=== PATIENT | female | born 1950 | race Caucasian/White ===

== ENCOUNTER 2024-07-03 14:52 | Emergency (ER) | payer BC ==
--- OUTSIDE RECORDS SUMMARY | 2024-07-03 14:55 | XMS REPORT | Continuity of Care Document ---
Author Name Unknown Address [address] [facility] [address] [place] [address] [facility] Address [address] [facility] 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 Name Role Phone Jeffrey Turk Attending Clinician Unavailable Latisha Caba Attending Clinician Unavailab le Latisha Caba Admitting Clinician Unavailab le Payers Payer Name Policy Type Policy Number Effective Date Expirati on Date Source [place] [address] [id number] 2020 00:00:00 [facility] [id number] 2012 00:00:00 Problems Condition Name Condition Details Condition Category Status Onset Date Resolution Date Last Treatment Date Treating Clinician Comments Source [id number] History of left breast cancer Problem Active [facility] Abnormal mammogram Abnormal mammogram Problem [facility] [id number] Nonallergi c rhinitis Problem [facility] Allergic rhinitis Non-season al allergic rhinitis, unspecifie d trigger Problem [facility] [id number] Mixed hyperlipid emia Problem Active [facility] [id number] Primary insomnia Problem [facility] [id number] Gastroesop hageal reflux disease, unspecifie d whether esophagiti s present Problem [facility] Allergies, Adverse Reactions, Alerts Allergy Name Allergy Type Status Severity Reaction(s) Onset Date Inactive Date Treating Clinician Comments Source Sulfa (Sulfona mide Antibiot ics) DA Active [place] 2015-06 00:00: 00 [facility] Sulfa (Sulfona mide Antibiot ics) DA Active [place] LIPS TURN BLUE, DIZZINESS 2015-06 00:00: 00 [facility] SULFA (SULFONA MIDE ANTIBIOT ICS) Drug Class Active Unknown-Cmnt 2015-06 00:00: 00 [facility] codeine codeine Active Unknown [facility] pantopra zole pantopra zole Active sore throat [facility] Substanc e with sulfonam radha structur e and antibact erial mechanis m of action (substan ce) Substanc e with sulfonam radha structur e and antibact erial mechanis m of action (substan ce) Active Unknown [facility] Social History Social Habit Start Date Stop Date Quantity Comments Source History of Tobacco Use [facility] Sex Assigned At [facility] Smoking Status Start Date Stop Date Source Never Smoker [facility] Medications Ordered Medication Name Filled Medication Name Start Date Stop Date Current Medication? Ordering Clinician Indication Dosage Frequency Signature (SIG) Comments Components Source Kenalog (Triamcinol one) Kenalog (Triamcinol one) 2023-06 00:00: 00 No 40mg [facility] traZODone HCl 50 MG traZODone HCl 50 MG No 1{table t_at_be dtime_a s_neede d} QD traZODone HCl 50 MG Immunizations Ordered Immunization Name Filled Immunization Name Date Status Comments Source Boostrix (Tdap) Boostrix (Tdap) 2021-08-13 10:33:00 Completed [facility] Boostrix (Tdap) Boostrix (Tdap) 2021-08-13 10:33:00 Completed [facility] FLUZONE HIGH DOSE OVER 65 FLUZONE HIGH DOSE OVER 65 2021-08-13 10:13:00 Completed [facility] FLUZONE HIGH DOSE OVER 65 FLUZONE HIGH DOSE OVER 65 2021-08-13 10:13:00 Completed [facility] FLUZONE HIGH DOSE OVER 65 FLUZONE HIGH DOSE OVER 65 Unknown Completed [facility] Prevnar 20 (PCV20) Prevnar 20 (PCV20) Unknown Completed [facility] FluAD Quad SD FluAD Quad SD Unknown Completed [facility] Boostrix (Tdap) Boostrix (Tdap) Unknown Completed [facility] FLUZONE HIGH DOSE OVER 65 FLUZONE HIGH DOSE OVER 65 Unknown Completed [facility] Prevnar 20 (PCV20) Prevnar 20 (PCV20) Unknown Completed [facility] FluAD Quad SD FluAD Quad SD Unknown Completed [facility] Boostrix (Tdap) Boostrix (Tdap) Unknown Completed [facility] FLUZONE HIGH DOSE OVER 65 FLUZONE HIGH DOSE OVER 65 Unknown Completed [facility] Prevnar 20 (PCV20) Prevnar 20 (PCV20) Unknown Completed [facility] FluAD Quad SD FluAD Quad SD Unknown Completed [facility] Boostrix (Tdap) Boostrix (Tdap) Unknown Completed [facility] FLUZONE HIGH DOSE OVER 65 FLUZONE HIGH DOSE OVER 65 Unknown Completed [facility] Prevnar 20 (PCV20) Prevnar 20 (PCV20) Unknown Completed [facility] Fluad (aIIV4) - SDS - 0.5mL Fluad (aIIV4) - SDS - 0.5mL Unknown Completed [facility] Boostrix (Tdap) Boostrix (Tdap) Unknown Completed [facility] FLUZONE HIGH DOSE OVER 65 FLUZONE HIGH DOSE OVER 65 Unknown Completed [facility] Prevnar 20 (PCV20) Prevnar 20 (PCV20) Unknown Completed [facility] Fluad (aIIV4) - SDS - 0.5mL Fluad (aIIV4) - SDS - 0.5mL Unknown Completed [facility] Boostrix (Tdap) Boostrix (Tdap) Unknown Completed [facility] FLUZONE HIGH DOSE OVER 65 FLUZONE HIGH DOSE OVER 65 Unknown Completed [facility] Prevnar 20 (PCV20) Prevnar 20 (PCV20) Unknown Completed [facility] Fluad (aIIV4) - SDS - 0.5mL Fluad (aIIV4) - SDS - 0.5mL Unknown Completed [facility] Boostrix (Tdap) Boostrix (Tdap) Unknown Completed [facility] FLUZONE HIGH DOSE OVER 65 FLUZONE HIGH DOSE OVER 65 Unknown Completed [facility] Prevnar 20 (PCV20) Prevnar 20 (PCV20) Unknown Completed [facility] Fluad (aIIV4) - SDS - 0.5mL Fluad (aIIV4) - SDS - 0.5mL Unknown Completed [facility] Boostrix (Tdap) Boostrix (Tdap) Unknown Completed [facility] FLUZONE HIGH DOSE OVER 65 FLUZONE HIGH DOSE OVER 65 Unknown Completed [facility] Prevnar 20 (PCV20) Prevnar 20 (PCV20) Unknown Completed [facility] Fluad (aIIV4) - SDS - 0.5mL Fluad (aIIV4) - SDS - 0.5mL Unknown Completed [facility] Boostrix (Tdap) Boostrix (Tdap) Unknown Completed [facility] FLUZONE HIGH DOSE OVER 65 FLUZONE HIGH DOSE OVER 65 Unknown Completed [facility] Prevnar 20 (PCV20) Prevnar 20 (PCV20) Unknown Completed [facility] Fluad (aIIV4) - SDS - 0.5mL Fluad (aIIV4) - SDS - 0.5mL Unknown Completed [facility] Boostrix (Tdap) Boostrix (Tdap) Unknown Completed [facility] FLUZONE HIGH DOSE OVER 65 FLUZONE HIGH DOSE OVER 65 Unknown Completed [facility] Prevnar 20 (PCV20) Prevnar 20 (PCV20) Unknown Completed [facility] Fluad (aIIV4) - SDS - 0.5mL Fluad (aIIV4) - SDS - 0.5mL Unknown Completed [facility] Boostrix (Tdap) Boostrix (Tdap) Unknown Completed [facility] FLUZONE HIGH DOSE OVER 65 FLUZONE HIGH DOSE OVER 65 Unknown Completed [facility] Prevnar 20 (PCV20) Prevnar 20 (PCV20) Unknown Completed [facility] Fluad (aIIV4) - SDS - 0.5mL Fluad (aIIV4) - SDS - 0.5mL Unknown Completed [facility] Boostrix (Tdap) Boostrix (Tdap) Unknown Completed [facility] FLUZONE HIGH DOSE OVER 65 FLUZONE HIGH DOSE OVER 65 Unknown Completed [facility] Prevnar 20 (PCV20) Prevnar 20 (PCV20) Unknown Completed [facility] Fluad (aIIV4) - SDS - 0.5mL Fluad (aIIV4) - SDS - 0.5mL Unknown Completed [facility] Boostrix (Tdap) Boostrix (Tdap) Unknown Completed [facility] FLUZONE HIGH DOSE OVER 65 FLUZONE HIGH DOSE OVER 65 Unknown Completed [facility] Prevnar 20 (PCV20) Prevnar 20 (PCV20) Unknown Completed [facility] FluAD Quad SD FluAD Quad SD Unknown Completed [facility] Boostrix (Tdap) Boostrix (Tdap) Unknown Completed [facility] FLUZONE HIGH DOSE OVER 65 FLUZONE HIGH DOSE OVER 65 Unknown Completed [facility] Prevnar 20 (PCV20) Prevnar 20 (PCV20) Unknown Completed [facility] FluAD Quad SD FluAD Quad SD Unknown Completed [facility] Boostrix (Tdap) Boostrix (Tdap) Unknown Completed [facility] Vital Signs Vital Name Observation Time Observation Value Comments S robce height 2024-05-02 11:15:00 65 [in_i] Commo n [facility] weight 2024-05-02 11:15:00 164.2 [lb_av] Co [facility] temperature 2024-05-02 11:15:00 97.2 [degF] Com [facility] bmi 2024-05-02 11:15:00 27.32 kg/m2 Comm on [facility] oximetry 2024-05-02 11:15:00 98 % Commo n [facility] blood pressure systolic 2024-05-02 11:15:00 130 mm[Hg] Common [facility] blood pressure diastolic 2024-05-02 11:15:00 80 mm[Hg] Common [facility] height 2023-08-07 10:30:00 65 [in_i] Commo n [facility] weight 2023-08-07 10:30:00 153.8 [lb_av] Co [facility] temperature 2023-08-07 10:30:00 97.3 [degF] Com [facility] bmi 2023-08-07 10:30:00 25.59 kg/m2 Comm on [facility] oximetry 2023-08-07 10:30:00 97 % Commo n [facility] blood pressure systolic 2023-08-07 10:30:00 110 mm[Hg] Common [facility] blood pressure diastolic 2023-08-07 10:30:00 60 mm[Hg] [facility] height 2023-07-31 11:20:00 65 [in_i] Commo n [facility] weight 2023-07-31 11:20:00 159 [lb_av] Comm on [facility] bmi 2023-07-31 11:20:00 26.46 kg/m2 Comm on [facility] height 2023-03-24 09:00:00 65 [in_i] Commo n [facility] weight 2023-03-24 09:00:00 159.2 [lb_av] Co [facility] temperature 2023-03-24 09:00:00 97.2 [degF] Com [facility] bmi 2023-03-24 09:00:00 26.49 kg/m2 Comm on [facility] oximetry 2023-03-24 09:00:00 98 % Commo n [facility] respiratory rate 2023-03-24 09:00:00 17 /min Common [facility] blood pressure systolic 2023-03-24 09:00:00 132 mm[Hg] [facility] blood pressure diastolic 2023-03-24 09:00:00 72 mm[Hg] Common [facility] height 2023-01-20 10:50:00 65 [in_i] Commo n [facility] weight 2023-01-20 10:50:00 164.2 [lb_av] Co on [facility] temperature 2023-01-20 10:50:00 97.3 [degF] Com [facility] bmi 2023-01-20 10:50:00 27.32 kg/m2 Comm on [facility] oximetry 2023-01-20 10:50:00 98 % Commo n [facility] respiratory rate 2023-01-20 10:50:00 16 /min Common [facility] blood pressure systolic 2023-01-20 10:50:00 129 mm[Hg] [facility] blood pressure diastolic 2023-01-20 10:50:00 72 mm[Hg] [facility] height 2022-08-25 13:00:00 65 [in_i] Commo n [facility] weight 2022-08-25 13:00:00 166.2 [lb_av] Co on [facility] temperature 2022-08-25 13:00:00 96.8 [degF] Com [facility] bmi 2022-08-25 13:00:00 27.65 kg/m2 Comm on [facility] oximetry 2022-08-25 13:00:00 98 % Commo n [facility] respiratory rate 2022-08-25 13:00:00 18 /min [facility] blood pressure systolic 2022-08-25 13:00:00 121 mm[Hg] [facility] blood pressure diastolic 2022-08-25 13:00:00 62 mm[Hg] Common [facility] height 2022-08-07 13:00:00 65 [in_i] Commo n [facility] weight 2022-08-07 13:00:00 169.1 [lb_av] Co mmon [facility] temperature 2022-08-07 13:00:00 97.2 [degF] Com [facility] bmi 2022-08-07 13:00:00 28.14 kg/m2 Comm on [facility] oximetry 2022-08-07 13:00:00 98 % Commo n [facility] respiratory rate 2022-08-07 13:00:00 18 /min [facility] blood pressure systolic 2022-08-07 13:00:00 119 mm[Hg] Common [facility] blood pressure diastolic 2022-08-07 13:00:00 64 mm[Hg] [facility] height 2021-09-02 13:50:00 65 [in_i] Commo n [facility] weight 2021-09-02 13:50:00 159.9 [lb_av] Co mmon [facility] temperature 2021-09-02 13:50:00 97.5 [degF] Com mon [facility] bmi 2021-09-02 13:50:00 26.61 kg/m2 Comm on [facility] oximetry 2021-09-02 13:50:00 97 % Commo n [facility] respiratory rate 2021-09-02 13:50:00 17 /min [facility] blood pressure systolic 2021-09-02 13:50:00 130 mm[Hg] Common [facility] blood pressure diastolic 2021-09-02 13:50:00 73 mm[Hg] Common [facility] height 2021-08-13 09:00:00 65 [in_i] Commo n [facility] weight 2021-08-13 09:00:00 170 [lb_av] Comm on [facility] temperature 2021-08-13 09:00:00 97.2 [degF] Com mon [facility] bmi 2021-08-13 09:00:00 28.29 kg/m2 Comm on [facility] oximetry 2021-08-13 09:00:00 97 % Commo n [facility] respiratory rate 2021-08-13 09:00:00 18 /min Common [facility] blood pressure systolic 2021-08-13 09:00:00 132 mm[Hg] Common [facility] blood pressure diastolic 2021-08-13 09:00:00 70 mm[Hg] Common [facility] Encounters Start Date/Time End Date/Time Encounter Type Admission Type Attending [facility] Facility Care Department Encounter ID Source 2024-04-28 13:59:00 Outpatient Turk[facility] [id number] [facility] 2023-09-01 10:38:01 Outpatient Turk, [facility] [id number] [facility] 2022-08-22 09:29:01 Outpatient Turk, [facility] [id number] [facility] 2022-08-05 10:12:01 Outpatient Turk, [facility] [id number] [facility] 2021-12-10 13:59:04 [facility] [id number] [facility] 2021-11-29 08:42:01 Outpatient Turk, Jeffrey [facility] [id number] [facility] 2021-11-04 10:42:31 Outpatient Turk, Jeffrey [facility] [id number] [facility] 2021-09-02 13:30:02 Outpatient Turk, Jeffrey [facility] [id number] [facility] 2021-08-13 08:51:05 Outpatient Turk, Jeffrey [facility] STL[facility] [id number] [facility] 2024-05-05 00:00:00 2024-05-05 00:00:00 (TEL) ST[facility] STL[facility] [id number] [facility] 2024-05-02 00:00:00 2024-05-02 00:00:00 OFFICE VISIT ESTAB PT LEVEL 4 [facility]C STL[facility]C [id number] [facility] 2024-05-02 00:00:00 2024-05-02 00:00:00 (TEL) STLMLC STL[facility]C [id number] [facility] 2024-03-11 00:00:00 2024-03-11 00:00:00 (TEL) STLMLC ST[facility] [id number] [facility] 2023-10-23 00:00:00 2023-10-23 00:00:00 (TEL) STLMLC STL[facility]C [id number] [facility] 2023-10-14 00:00:00 2023-10-14 00:00:00 (TEL) STLMLC STLMLC [id number] [facility] 2023-08-07 00:00:00 2023-08-07 00:00:00 PREV VISIT EST AGE 65 & OVER STLMLC STLMLC [id number] [facility] 2023-07-31 00:00:00 2023-07-31 00:00:00 OFFICE VISIT ESTAB PT LEVEL 3 [facility]C STL[facility]C [id number] [facility] 2023-07-31 00:00:00 2023-07-31 00:00:00 (TEL) STLMLC STL[facility]C [id number] [facility] 2023-03-30 00:00:00 2023-03-30 00:00:00 (TEL) STLMLC STLMLC [id number] [facility] 2023-03-24 00:00:00 2023-03-24 00:00:00 OFFICE VISIT ESTAB PT LEVEL 4 [facility]C STL[facility]C [id number] [facility] 2023-03-23 00:00:00 2023-03-23 00:00:00 (TEL) STLMLC STL[facility]C [id number] [facility] 2023-01-20 00:00:00 2023-01-20 00:00:00 OFFICE VISIT ESTAB PT LEVEL 3 [facility]C STL[facility]C [id number] [facility] 2022-10-06 00:00:00 2022-10-06 00:00:00 (TEL) STLMLC STLMLC [id number] [facility] 2022-10-06 00:00:00 2022-10-06 00:00:00 (TEL) STLMLC STLMLC [id number] [facility] 2022-08-25 00:00:00 2022-08-25 00:00:00 OFFICE VISIT ESTAB PT LEVEL 4 [facility]C STL[facility]C [id number] [facility] 2022-08-07 00:00:00 2022-08-07 00:00:00 PREV VISIT EST AGE 65 & OVER STLMLC STLMLC [id number] [facility] 2021-09-03 00:00:00 2021-09-03 00:00:00 (TEL) STLMLC STLMLC [id number] [facility] 2021-09-02 00:00:00 2021-09-02 00:00:00 OFFICE VISIT EST PT LEVEL 3 [facility] STL[facility]C [id number] [facility] 2021-08-15 00:00:00 2021-08-15 00:00:00 (TEL) STLMLC STL[facility]C [id number] [facility] 2021-08-13 00:00:00 2021-08-13 00:00:00 PREV VISIT NEW AGE 65 & OVER STLMLC STLMLC [id number] [facility] 2021-04-11 11:30:00 2021-04-11 11:30:00 Outpatient [facility] [id number] [facility] 2019-12-08 12:00:00 2019-12-08 12:00:00 Outpatient Latisha Cleveland [facility] [id number] [facility] Results Test Description Test Time Test Comments Results Result Co mments Source HEMOGLOBIN [id number] 00:00:00* Test Item Value Reference Range Interpretation Comme nts HEMOGLOBIN A1c (test code = 4548-4) 5.6 % See_Comment [Automated [employer]] The system which generated this result transmitted reference range: 4.2-5.6 %. The reference range was not used to interpret this result as normal/abnormal. DEXA, BONE DENSITY AXIAL SKELEDEXA, BONE DENSITY AXIAL GLMZE5G SCR ALISON BILAT W/CAD3D SCR ALISON BILAT W/CADPOC, COVID 19 Antigen + Flu by SofiaPOC, COVID 19 Antigen + Flu by Ora
[2024-07-03] MEDS ORDERED: MORPHINE 2 MG/ML SYR ONE ×2 (15:40→19:05)
[2024-07-03] MEDS ORDERED: FAMOTIDINE 20 MG/2 ML VIAL IV ONE (15:40)
[2024-07-03] MEDS ORDERED: ONDANSETRON 4 MG/2 ML VIAL ONE (15:40)
[2024-07-03] MEDS ORDERED: NA CHLORIDE 0.9% 500 ML ONE (15:41)
[2024-07-03 16:07] LABS: Absolute Basophils 0.1 K/uL (0-0.5); Absolute Eosinophils 0.2 K/uL (0-0.5); Absolute Lymphocytes (CBC) 1.6 K/uL (0.7-4.9); Absolute Monocytes 0.7 K/uL (0.1-1.3); Absolute Neutrophil 8.1 K/uL (1.8-8.0); Basophils % 0.9 % (0-1.3); Eosinophils % 1.6 % (0-4.4); Hemoglobin 13.6 g/dL (12.0-15.0); Lymphocytes % 14.8 % (15.3-44.8); MCH 32.3 pg (27.0-35.0); MCV 94.9 fL (80-100); MPV 8.5 fL (7.6-11.3); Monocytes % 6.5 % (3.3-12.3); Neutrophils % 76.2 % (41.7-73.7); Nucleated Red Blood Cells % 0.1 % (0-0); Platelets 271 thou/uL (152-406); RBC Red Blood Cell Count 4.22 M/uL (3.86-4.86); Red Cell Distribution Width 13.3 % (12.1-15.2)
[2024-07-03 16:21] LABS: ALT/SGPT 29 U/L (13-56); AST/SGOT 47 U/L (15-37); Albumin 3.6 g/dL (3.4-5.0); Alkaline Phosphatase 81 U/L (45-117); Anion Gap 12.3 mEq/L (5.0-15.0); BUN Blood Urea Nitrogen 15 mg/dL (7-18); Bicarbonate 23 mEq/L (21-32); Bilirubin Direct 0.3 mg/dL (0-0.2); Bilirubin Indirect, Calculated 0.5 mg/dL (0.2-0.8); Bilirubin Total 0.8 mg/dL (0.2-1.0); Globulin 3.6 g/dL (2.3-3.5); Glomerular Filtration Rate 81 ml/min (=/>90); Glucose Level 104 mg/dL (74-106); Lipase 53 U/L (13-75); Magnesium 2.2 mg/dL (1.6-2.4); Potassium 3.3 mEq/L (3.5-5.1); Protein, Total 7.2 g/dL (6.4-8.2); Sodium Level 140 mEq/L (136-145)
--- NOTE | 2024-07-03 16:22 | RAD REPORT ---
EXAMINATION: ONE VIEW CHEST XR CLINICAL INDICATION: Female, 73 years old.,epigastric pain TECHNIQUE: Frontal chest projection is submitted. Examination is limited by patient positioning and t echnique. COMPARISON: No prior exam. FINDINGS: The lungs are somewhat hypoinflated but clear. No pneumothorax or sizable effusion. The heart is nor mal in size. Mediastinal contours are unremarkable. IMPRESSION: No acute intrathoracic abnormalities.
[2024-07-03 16:25] LABS: Troponin High Sensitivity < 3.0 pg/mL (<58.9)
[2024-07-03 16:30] LABS: PT Prothrombin Time 11.9 SECONDS (9.4-12.5); Protime INR 1.06
--- NOTE | 2024-07-03 18:44 | RAD REPORT ---
EXAMINATION: CT Abdomen Pelvis W Contrast CLINICAL INDICATION: Female, 73 years old. EPIGASTRIC PAIN TECHNIQUE: CT abdomen and pelvis was performed, after the administration of IV contrast, as per [facility] protocol. Axial, sagittal and coronal reconstructions were obtained. One or more of the following dose reduction techniques were used: Automated exposure control, adjustment of the mA and k V according to patient size, and iterative reconstruction. Unless otherwise specified, incidental findings do not require dedicated imaging follow-up. COMPARISON: No prior exam. FINDINGS: LOWER CHEST: The visualized lung bases are clear apart from small platelike atelectasis in the depend ent left lower lobe. LIVER: Normal in size and contour. No focal lesion. BILIARY SYSTEM: Status post cholecystectomy. SPLEEN: Normal size. No focal lesion. PANCREAS: No mass, ductal dilation, or charlene-pancreatic fluid. ADRENALS: Nodular left adrenal thickening, up to 2.3 cm, not well characterized.. No right adrenal arnold spicious findings. KIDNEYS: Normal size and contour. No hydronephrosis. URINARY BLADDER: Unremarkable. GASTROINTESTINAL TRACT: No evidence of free air, significant intra-abdominal free fluid, bowel obstru ction or abscess. 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 APPENDIX: Normal appendix. LYMPH NODES: No lymphadenopathy. MUSCULOSKELETAL: Lucent left lateral eighth rib 1.4 cm lesion with endosteal scalloping, nonspecific, may represent a small bone cyst. No acute osseous abnormality. ADDITIONAL FINDINGS: None. IMPRESSION: No acute or concerning abnormalities seen in the abdomen or pelvis. Incidental findings as above including homogeneous nodular left adrenal thickening, up to 2.3 cm. Adrenal Incidental Indeterminate, CT W/O, > 2 - < 4 cm, > 10 HU, Homogeneous: Noncontrast CT, Incidental Indeterminate Adrenal Mass > 2 - < 4 cm, > 10 HU, Homogeneous: Probable be nign adenoma. Recommend adrenal washout CT or chemical shift MRI. These guidelines do not apply to patients younger than 18 years, patients with cancer, and patients w ith any clinical suspicion of a functioning adrenal lesion. Reference: JACR 2017 Jan; 14(8):1038-44, JCAT 2016 Aug-Sep; 40(2):194-200
--- NOTE | 2024-07-03 19:07 | ER ---
Nurse's Notes [facility] Name: Linette Robles Age: 73 yrs Sex: Female : 1950 Arrival Date: 07/03/2024 Time: 14:52 Bed 13 Private MD: Diagnosis: Epigastric pain Presentation: 07/03 15:05 Chief complaint: Patient states: UPPER MIDDLE ABD PAIN STATES FEELS WORSE THAN GALL db BLADDER PAIN PRIOR TO SURGERY. REPORTS PAIN STARTED LAST NIGHT. DENES N/V. Coronavirus screen: Client denies travel out of the [place] in the last 14 days. At this time, the client does not indicate any symptoms associated with coronavirus-19. Ebola Screen: Patient negative for fever greater than or equal to 101.5 degrees Fahrenheit, and additional compatible Ebola Virus Disease symptoms Patient denies exposure to infectious person. Patient denies travel to an Ebola-affected area in the 21 days before illness onset. No symptoms or risks identified at this time. Initial Sepsis Screen: Does the patient meet any 2 criteria? No. Patient's initial sepsis screen is negative. Does the patient have a suspected source of infection? No. Patient's initial sepsis screen is negative. Risk Assessment: Do you want to hurt yourself or someone else? Patient reports no desire to harm self or others. Onset of symptoms was July 02, 2024. 15:05 Method Of Arrival: Ambulatory db 15:05 Acuity: ENIO 3 db Triage Assessment: 15:08 General: Appears in no apparent distress. uncomfortable, Behavior is cooperative, db anxious. Pain: Complains of pain in epigastric area and right upper quadrant. Neuro: Level of Consciousness is awake, alert, obeys commands, Oriented to person, place, time, situation. Respiratory: Airway is patent Respiratory effort is even, unlabored, Respiratory pattern is regular, symmetrical. GI: Abdomen is flat, non-distended, Reports upper abdominal pain. Historical: - Allergies: 15:20 Codeine; db 15:20 SULFUR, ELEMENTAL; db 15:20 Sulfa (Sulfonamide Antibiotics); db - PMHx: 15:20 CANCER BREAST; LEFT; db - PSHx: 15:20 LEFT BREAST; db - Immunization history:: Adult Immunizations unknown. - Infectious Disease History:: Denies. - Social history:: Smoking status: Patient denies any tobacco usage or history of. Screenin:10 [facility] ED Fall Risk Assessment (Adult) History of falling in the last 3 months, rs5 including since admission No falls in past 3 months (0 pts) Confusion or Disorientation No (0 pts) Intoxicated or Sedated No (0 pts) Impaired Gait No (0 pts) Mobility Assist Device Used No (0 pt) Altered Elimination No (0 pt) Score/Fall Risk Level 0 - 2 = Low Risk Oriented to surroundings, Maintained a safe environment. Abuse screen: Denies threats or abuse. Nutritional screening: No deficits noted. Tuberculosis screening: No symptoms or risk factors identified. Assessment: 15:07 General: Appears in no apparent distress. uncomfortable, Behavior is calm, cooperative. rs5 Pain: Complains of pain in abdomen Pain currently is 8 out of 10 on a pain scale. Quality of pain is described as aching, Is continuous. Neuro: Level of Consciousness is awake, alert, obeys commands, Oriented to person, place, time, situation. Cardiovascular: Patient's skin is warm and dry. Respiratory: Airway is patent Respiratory effort is even, unlabored, Respiratory pattern is regular, symmetrical. GI: Abdomen is round non-distended, Bowel sounds present X 4 quads. Abd is soft and non tender. : No signs and/or symptoms were reported regarding the genitourinary system. EENT: No signs and/or symptoms were reported regarding the EENT system. Derm: Skin is intact, Skin is pink, warm \T\ dry. Musculoskeletal: Range of motion: intact in all extremities. 16:30 Reassessment: Patient and/or family updated on plan of care and expected duration. Pain rs5 level reassessed. Patient is alert, oriented x 3, equal unlabored respirations, skin warm/dry/pink. 19:20 General: Appears in no apparent distress. comfortable, Behavior is calm, cooperative. rg5 Pain: Denies pain. Neuro: Level of Consciousness is awake, alert, Oriented to person, place. Cardiovascular: Patient's skin is warm and dry. Respiratory: Airway is patent Trachea midline Respiratory effort is even, unlabored, Respiratory pattern is regular, symmetrical. Vital Signs: 15:05 BP 147 / 104; Pulse 76; Resp 17; Temp 98.1(O); Pulse Ox 100% on R/A; Weight 70.31 kg; db Height 5 ft. 4 in. ; 16:32 BP 137 / 91; Pulse 74; Resp 17; Pulse Ox 99% on R/A; rs5 19:48 BP 128 / 77; Pulse 74; Resp 17; Temp 98; Pulse Ox 99% on R/A; Pain 0/10; rg5 15:05 Body Mass Index 26.61 (70.31 kg, 162.56 cm) db 19:48 Pain Scale: Adult rg5 ED Course: 14:54 Patient arrived in ED. mr 14:57 Rashid Plunkett PA is PHCP. cp 14:57 Rupert Schafer MD is Attending Physician. cp 15:08 Arm band placed on Patient placed in an exam room. db 15:10 No provider procedures requiring assistance completed. Inserted saline lock: 20 gauge rs5 in right wrist, using aseptic technique. 15:10 Patient has correct armband on for positive identification. Bed in low position. Call rs5 light in reach. Side rails up X2. 15:13 EKG done, reviewed by Rashid RDZ. db 15:20 Triage completed. db 15:21 Carlos Alberto wSan, RN is Primary Nurse. rs5 15:45 XRAY Chest (1 view) In Process Unspecified. EDMS 17:59 CT Abd/Pelvis - IV Contrast Only In Process Unspecified. EDMS 19:48 IV discontinued, bleeding controlled, No redness/swelling at site. Pressure dressing rg5 applied. 19:48 Provided Education on: post er care. rg5 Administered Medications: 09:10 Drug: morphine IVP or IV 2 mg IVP once over 4 mins Route: IVP; Infused Over: 4 mins; rg5 Site: right hand; 19:47 Follow up: Response: No adverse reaction rg5 15:40 Drug: Ondansetron IVP 4 mg IVP once; over 2 minutes Route: IVP; Site: right wrist; rs5 16:01 Follow up: Response: No adverse reaction; Nausea is decreased rs5 15:40 Drug: Famotidine IVP 20 mg IVP once; dilute with 10 mL 0.9% NaCl; give over 2 minutes rs5 Route: IVP; Site: right wrist; 16:05 Follow up: Response: No adverse reaction rs5 15:40 Drug: NS 0.9% IV 500 ml 500 ml IV at 1 bolus once; to be given as a bolus over 60 rs5 minutes Volume: 500 ml; Route: IV; Rate: 1 bolus; Site: right wrist; 16:10 Follow up: Response: No adverse reaction; IV Status: Completed infusion; IV Intake: rs5 500ml 15:40 Drug: morphine IVP or IV 2 mg IVP once over 4 mins Route: IVP; Infused Over: 4 mins; rs5 Site: right wrist; 16:01 Follow up: Response: No adverse reaction; Pain is decreased rs5 19:10 Drug: Potassium PO Effervescent Tablet 25 mEq PO once; dissolve in 4 ounces of water or rg5 juice Route: PO; 19:47 Follow up: Response: No adverse reaction rg5 19:10 Drug: GI Cocktail without - (Maalox PO 30 ml, Lidocaine Mucous Membrane 2 % 15 rg5 ml) PO once Route: PO; 19:47 Follow up: Response: No adverse reaction rg5 19:10 Drug: Pantoprazole PO 40 mg PO once Route: PO; rg5 19:47 Follow up: Response: No adverse reaction rg5 Medication: 16:31 VIS not applicable for this client. rs5 Intake: 16:10 IV: 500ml; Total: 500ml. rs5 Outcome: 19:05 Discharge ordered by MD. milla 19:48 Discharged to home ambulatory, rg5 19:48 Condition: stable 19:48 Discharge instructions given to patient, family, Instructed on discharge instructions, follow up and referral plans. Demonstrated understanding of instructions, follow-up care, medications, Prescriptions given X 1, 19:50 Patient left the ED. rg5 Signatures: Dispatcher [employer] EDMI HaynesNiecy, Reg Reg mr Rashid Plunkett PA PA Zoraida Jennings, RN RN db Carlos Alberto Swan RN RN rs5 Zane Emery RN RN rg5
--- NOTE | 2024-07-03 19:07 | EDPHYS ---
Physician Documentation [facility] Name: Linette Robles Age: 73 yrs Sex: Female : 1950 Arrival Date: 07/03/2024 Time: 14:52 Bed 13 Private MD: ED Physician Rupert Schafer HPI: 07/03 15:20 This 73 yrs old Female presents to ER via Ambulatory with complaints of Abdominal Pain. cp 15:20 The patient presents with abdominal pain in the epigastric area, in the upper abdomen. cp Onset: The symptoms/episode began/occurred last night. Historical: - Allergies: 15:20 Codeine; db 15:20 SULFUR, ELEMENTAL; db 15:20 Sulfa (Sulfonamide Antibiotics); db - PMHx: 15:20 CANCER BREAST; LEFT; db - PSHx: 15:20 LEFT BREAST; db - Immunization history:: Adult Immunizations unknown. - Infectious Disease History:: Denies. - Social history:: Smoking status: Patient denies any tobacco usage or history of. ROS: 15:25 Respiratory: Negative for cough, shortness of breath, wheezing, cp 15:25 Abdomen/GI: Positive for abdominal pain, of the epigastric area and upper abdomen, Negative for vomiting, diarrhea, constipation, 15:25 Cardiovascular: Negative for chest pain, edema, palpitations, cp 15:25 Eyes: Negative for injury, pain, redness, and discharge, cp 15:25 Constitutional: Negative for body aches, chills, fever, 15:25 ENT: Negative for drainage from ear(s), ear pain, sore throat, difficulty swallowing, cp difficulty handling secretions, 15:25 Neuro: Negative for altered mental status, dizziness, headache, weakness, 15:25 All other systems are negative, Exam: 15:30 Constitutional: The patient appears in no acute distress, alert, awake, cp non-diaphoretic, non-toxic, well developed, well nourished, anxious, 15:30 Head/Face: Normocephalic, atraumatic. cp 15:30 Eyes: Periorbital structures: appear normal, Conjunctiva: normal, no exudate, no injection, Sclera: no appreciated abnormality, Lids and lashes: appear normal, bilaterally, 15:30 ENT: External ear(s): are unremarkable, Nose: is normal, Mouth: Lips: moist, Oral mucosa: moist, Posterior pharynx: Airway: no evidence of obstruction, patent, 15:30 Chest/axilla: Inspection: normal, Palpation: crepitus, is not appreciated, tenderness, is not appreciated, 15:30 Cardiovascular: Rate: normal, Rhythm: regular, Edema: is not appreciated, JVD: is not appreciated, 15:30 Respiratory: the patient does not display signs of respiratory distress, Respirations: normal, no use of accessory muscles, no retractions, labored breathing, is not present, Breath sounds: are clear throughout, no decreased breath sounds, no stridor, no wheezing, 15:30 Abdomen/GI: Inspection: abdomen appears normal, Bowel sounds: active, all quadrants, Palpation: soft, in all quadrants, mild abdominal tenderness, in the epigastric area, rebound tenderness, is not appreciated, involuntary guarding, is not appreciated, 15:30 Back: CVA tenderness, is absent, 15:30 Neuro: Orientation: to person, place \T\ time. Mentation: is normal, Motor: moves all fours, strength is normal, Vital Signs: 15:05 BP 147 / 104; Pulse 76; Resp 17; Temp 98.1(O); Pulse Ox 100% on R/A; Weight 70.31 kg; db Height 5 ft. 4 in. ; 16:32 BP 137 / 91; Pulse 74; Resp 17; Pulse Ox 99% on R/A; rs5 19:48 BP 128 / 77; Pulse 74; Resp 17; Temp 98; Pulse Ox 99% on R/A; Pain 0/10; rg5 15:05 Body Mass Index 26.61 (70.31 kg, 162.56 cm) db 19:48 Pain Scale: Adult rg5 MDM: 15:07 Medical Screening Exam initiated 16:00 Differential diagnosis: bowel obstruction, gastritis, gastroesophageal reflux disease, cp non-specific abd pain, pancreatitis, Peptic Ulcer Disease, Perf. Duodenal Ulcer, Perf. Gastric Ulcer, Ureterolithiasis, urinary tract infection, choledocholithiasis. 19:05 Data reviewed: vital signs, nurses notes, lab test result(s), radiologic studies, CT cp scan, plain films, and as a result, I will discharge patient. 19:05 I considered the following discharge prescriptions or medication management in the emergency department Medications were administered in the Emergency Department. See AUG. 19:05 Counseling: I had a detailed discussion with the patient and/or guardian regarding the cp historical points, exam findings, and any diagnostic results supporting the discharge/admit diagnosis, lab results, radiology results, to return to the emergency department if symptoms worsen or persist or if there are any questions or concerns that arise at home. Response to treatment: the patient's symptoms have markedly improved after treatment, and as a result, I will discharge patient. Special discussion: Based on the patient's Hx, exam, and Dx evaluation, there is no indication for emergent surgery or inpatient Tx. It is understood by the patient/guardian that if the Sx's persist or worsen they need to return immediately for re-evaluation. 07/03 15:33 Order name: Basic Metabolic Panel; Complete Time: 17:09 cp 07/03 19:07 Interpretation: Normal except: K 3.3; CL 108; GFR 81. cp 07/03 15:33 Order name: CBC with Diff; Complete Time: 17:09 cp 07/03 15:33 Order name: LFT's; Complete Time: 17: cp 07/03 15:33 Order name: Magnesium; Complete Time: 17:09 cp 07/03 15:33 Order name: PT-INR; Complete Time: 17:09 cp 07/03 15:33 Order name: Troponin HS; Complete Time: 17:09 cp 07/03 15:33 Order name: Lipase; Complete Time: 17:09 cp 07/03 15:33 Order name: XRAY Chest (1 view); Complete Time: 17:09 cp 07/03 17:09 Order name: CT Abd/Pelvis - IV Contrast Only; Complete Time: 18:55 cp 07/03 18:56 Interpretation: Report reviewed. cp 07/03 15:33 Order name: EKG; Complete Time: 15:33 cp 07/03 15:18 Order name: EKG - Nurse/Tech; Complete Time: 15:18 db 07/03 15:33 Order name: Cardiac monitoring; Complete Time: 16:03 cp 07/03 15:33 Order name: IV Saline Lock; Complete Time: 16:03 cp 07/03 15:33 Order name: Labs collected and sent; Complete Time: 16:03 cp 07/03 15:33 Order name: O2 Per Protocol; Complete Time: 16:03 cp 07/03 15:33 Order name: O2 Sat Monitoring; Complete Time: 16:03 cp Administered Medications: 09:10 Drug: morphine IVP or IV 2 mg IVP once over 4 mins Route: IVP; Infused Over: 4 mins; rg5 Site: right hand; 19:47 Follow up: Response: No adverse reaction rg5 15:40 Drug: Ondansetron IVP 4 mg IVP once; over 2 minutes Route: IVP; Site: right wrist; rs5 16:01 Follow up: Response: No adverse reaction; Nausea is decreased rs5 15:40 Drug: Famotidine IVP 20 mg IVP once; dilute with 10 mL 0.9% NaCl; give over 2 minutes rs5 Route: IVP; Site: right wrist; 16:05 Follow up: Response: No adverse reaction rs5 15:40 Drug: NS 0.9% IV 500 ml 500 ml IV at 1 bolus once; to be given as a bolus over 60 rs5 minutes Volume: 500 ml; Route: IV; Rate: 1 bolus; Site: right wrist; 16:10 Follow up: Response: No adverse reaction; IV Status: Completed infusion; IV Intake: rs5 500ml 15:40 Drug: morphine IVP or IV 2 mg IVP once over 4 mins Route: IVP; Infused Over: 4 mins; rs5 Site: right wrist; 16:01 Follow up: Response: No adverse reaction; Pain is decreased rs5 19:10 Drug: Potassium PO Effervescent Tablet 25 mEq PO once; dissolve in 4 ounces of water or rg5 juice Route: PO; 19:47 Follow up: Response: No adverse reaction rg5 19:10 Drug: GI Cocktail without - (Maalox PO 30 ml, Lidocaine Mucous Membrane 2 % 15 rg5 ml) PO once Route: PO; 19:47 Follow up: Response: No adverse reaction rg5 19:10 Drug: Pantoprazole PO 40 mg PO once Route: PO; rg5 19:47 Follow up: Response: No adverse reaction rg5 Disposition: 07/04 09:09 Co-signature as Attending Physician, Rupert Schafer MD I reviewed the patient's care rn provided by the Advanced Practice Provider and agree with the diagnosis and treatment plan. Disposition Summary: 07/03/24 19:05 Discharge Ordered Notes: Location: Home cp Problem: new cp Symptoms: have improved cp Condition: Stable cp Diagnosis - Epigastric pain cp Followup: cp - With: Private Physician - When: 1 week - Reason: Recheck today's complaints Discharge Instructions: - Discharge Summary Sheet cp - Abdominal Pain, Adult cp - Gastroesophageal Reflux Disease, Adult cp Forms: - Medication Reconciliation Form cp - Antibiotic Education cp - Prescription Opioid Use cp - Patient Portal Instructions cp - Leadership Thank You Letter cp Prescriptions: - Protonix 40 mg Oral Tablet - take 1 tablet ORAL route once daily; 30 tablet; Refills: 0, Product Selection cp Permitted Signatures: Dispatcher [employer] EDMS Rupert Schafer MD MD rn Rashid Plunkett PA PA cp Zoraida Sarabia RN RN db Carlos Alberto Swan RN RN rs5 Zane Emery RN RN rg5 Corrections: (The following items were deleted from the chart) 07/03 17:10 17:10 Abdomen Pelvis W Con+[id number].BRZ ordered. EDMS EDMS 18:59 18:58 Abdomen/GI: Positive for abdominal pain, of the epigastric area and upper cp abdomen, Negative for vomiting, diarrhea, constipation, cp 18:59 18:58 Cardiovascular: Negative for chest pain, edema, palpitations, cp cp 18:59 18:58 Respiratory: Negative for cough, shortness of breath, wheezing, cp cp
[2024-07-03] MEDS ORDERED: POTASSIUM 25 MEQ EFFERV TAB ONE (19:37)
[2024-07-03] MEDS ORDERED: LIDOCAINE VISCOUS 2% 10ML ORAL SOLN ONE (19:37)
[2024-07-03] MEDS ORDERED: PANTOPRAZOLE 40MG TABLET PO ONE (19:37)
[2024-07-03] MEDS ORDERED: MAGNES/ALUMIN/SIMET 30ML UCUP ONE (19:37)
[2024-07-05 16:14] VITALS: BP 128/77; TEMP 98; O2SAT 99
--- NOTE | 2024-07-07 12:10 | EKG ---
Test Date: 2024-07-03 Test Time: 15:13:31 Cardiac Cath Lab Radiology Technologist: SHARATH MEASUREMENT RESULTS: Intervals: Rate: 84 NV: 120 QRSD: 74 QT: 380 QTc: 449 [place]: P: 18 NV: 120 QRS: 25 T: 44 INTERPRETIVE STATEMENTS: Normal sinus rhythm Possible Left atrial enlargement Low voltage QRS Borderline ECG No previous ECG available for comparison Electronically Signed On 07-07-24 12:08:01 [employer]OR [employer] by Vaughn Wheeler
== END 2024-07-03 19:50 | disposition home or self-care (01) ==
LOC: ER 14:52
DX: R10.13 Epigastric pain (principal); Z88.2 Allergy status to sulfonamides; Z88.5 Allergy status to narcotic agent
CPT/HCPCS: 93005; 85025; 80048; 36415; 83735; 85610; 80076; 84484; 83690; 74177; 71045; 99284; Q9967; J2270 ×2; J2405; J7040